=== PATIENT | female | born 1960 | race Caucasian/White ===

== ENCOUNTER 2019-06-25 15:19 | Outpatient (CLI) | payer OTHER | END 2019-06-25 23:59 | disposition home or self-care (01) | LOC: CFH 15:19 | PROVIDERS: ATTEND Family Medicine | DX: M50.322 Other cervical disc degeneration at C5-C6 level (principal) | CPT/HCPCS: 70551; 72141 ==

== ENCOUNTER 2020-10-30 05:22 | Day surgery (SDC) | payer OTHER ==
[2020-10-29 15:19] LABS: BASOPHILS % (AUTO) 1 % (0-1); EOSINOPHILS % (AUTO) 2 % (1-7); LYMPHOCYTES % (AUTO) 32 % (22-44); MEAN CORPUSCULAR HEMOGLOBIN 29.6 pg (27.0-34.8); MEAN CORPUSCULAR HGB CONC 33.4 g/dL (32.4-35.8); MEAN PLATELET VOLUME 8.9 fL (7.4-10.4); MONOCYTES % (AUTO) 6 % (2-9); NEUTROPHILS % (AUTO) 60 % (42-75); PLATELET COUNT 249 x10^3/uL (130-400); RED BLOOD COUNT 4.23 x10^6/uL (3.82-5.3); RED CELL DISTRIBUTION WIDTH 13.1 % (9.6-15.2)
[2020-10-29 15:20] LABS: MD NO
[2020-10-29 15:23] LABS: ALANINE AMINOTRANSFERASE 31 U/L (12-78); ALBUMIN 3.8 g/dL (3.4-5.0); ANION GAP 6 mmol/L (5-15); CHLORIDE 107 mmol/L (98-107); CREATININE 0.68 mg/dL (0.55-1.02)
[2020-10-29 15:25] LABS: ALKALINE PHOSPHATASE 80 U/L (45-117); BILIRUBIN,TOTAL 0.3 mg/dL (0.2-1.0); TOTAL PROTEIN 7.4 g/dL (6.4-8.2)
[2020-10-29 15:44] LABS: MICROSCOPIC AUTO
[~2020-10-30] VITALS: Ht 172.7 cm; Wt 63.0 kg
[~2020-10-30 05:22] MED LIST: ESOM40CA PO; ESTR4INS VG
[2020-10-30] MEDS ORDERED: CHLORHEXIDINE 15 ML UDC MM STA (06:07)
[2020-10-30 06:09] VITALS: BP 124/75
[2020-10-30] MEDS ORDERED: BUPIVACAINE/PF 0.25% ONE (06:12)
[2020-10-30] MEDS ORDERED: FLUORESCEIN SODIUM 500 MG/5 ML ONE (06:13)
[2020-10-30] MEDS ORDERED: EPINEPHRINE 1 MG/ML, 1ML ONE (06:13)
[2020-10-30] MEDS ORDERED: ACETAMINOPHEN 500 MG TABLET PO ONE (06:30)
[2020-10-30] MEDS ORDERED: LACTATED RINGERS 1,000 ML IV SCH (06:30)
[2020-10-30] MEDS ORDERED: SCOPOLAMINE 1MG PATCH TD ONE ×2 (06:59→07:30)
[2020-10-30] MEDS ORDERED: ROCURONIUM 10MG/ML,5ML ONE (07:03)
[2020-10-30] MEDS ORDERED: LIDOCAINE-MPF 2% ,5ML ONE (07:03)
[2020-10-30] MEDS ORDERED: PROPOFOL 10 MG/ML, 20ML ONE (07:03)
[2020-10-30] MEDS ORDERED: FENTANYL PF 250 MCG/5ML ONE (07:03)
[2020-10-30] MEDS ORDERED: SCOPOLAMINE 1MG PATCH TD STA (07:04)
[2020-10-30] MEDS ORDERED: DEXAMETHASONE 4 MG/ML, 1ML ONE ×2 (07:08)
[2020-10-30] MEDS ORDERED: CEFAZOLIN 1,000 MG ONE ×2 (07:08)
[2020-10-30] MEDS ORDERED: PROMETHAZINE 25 MG/ML, 1ML IVPush PRN (08:00)
[2020-10-30] MEDS ORDERED: ONDANSETRON 2MG/ML, 2ML IVPush PRN (08:00)
[2020-10-30] MEDS ORDERED: ESTROGENS CONJUGATED VAG CRM 0.625MG/1G, 30GM ONE (08:50)
[2020-10-30] MEDS ORDERED: ONDANSETRON 2MG/ML, 2ML ONE (09:19)
[2020-10-30] MEDS ORDERED: FENTANYL PF 100 MCG/2ML ONE (09:42)
[2020-10-30] MEDS ORDERED: OXYcodone 5 MG/5 ML ORAL.SOL UDC ONE (09:42)
[2020-10-30] MEDS: FENTANYL PF 100 MCG/2ML IV PRN ×3 (09:49→10:15)
[2020-10-30] MEDS: OXYcodone 5 MG/5 ML ORAL.SOL UDC PO PRN ×2 (09:53→14:07)
== END 2020-10-30 17:15 | disposition home or self-care (01) ==
LOC: OUT 05:22
PROVIDERS: ATTEND Obstetrics & Gynecology
DX: N81.89 Other female genital prolapse (principal); N81.2 Incomplete uterovaginal prolapse; M32.9 Systemic lupus erythematosus, unspecified; K21.9 Gastro-esophageal reflux disease without esophagitis; Z20.828 Contact with and (suspected) exposure to other viral communicable diseases; Z79.899 Other long term (current) drug therapy; Z88.8 Allergy status to other drugs, medicaments and biological substances; Z80.3 Family history of malignant neoplasm of breast
CPT/HCPCS: 36415; 57265; 58262; 71046; 80053; 81001; 85014; 85018; 85025; 86850; 86900; 87077; 87086; 87186; 87635; 88305; 93005; J0171; J0690; J1100; J2405; J2704; J3010; J7120